=== PATIENT | female | born 1995 | race Two or more races ===

== ENCOUNTER 2022-06-19 12:32 | Outpatient (REF) | payer OTHER, SELFPAY ==
[2022-06-19 14:19] LABS: SARS PCR* Negative SARS-CoV-2 (Negative)
== END 2022-06-19 12:33 | disposition home or self-care (01) ==
LOC: NPINS 12:32
PROVIDERS: PCP Internal Medicine; Visit Provider Internal Medicine
DX: Z20.822 Contact with and (suspected) exposure to COVID-19 (principal)
CPT/HCPCS: 87635

== ENCOUNTER 2022-06-20 20:51 | Outpatient (CLI) | payer OTHER, SELFPAY | END 2022-06-20 20:52 | disposition home or self-care (01) | PROVIDERS: PCP Internal Medicine; Visit Provider Internal Medicine | DX: G47.33 Obstructive sleep apnea (adult) (pediatric) (principal); G47.10 Hypersomnia, unspecified | CPT/HCPCS: 95810 ==

== ENCOUNTER 2022-12-21 14:46 | Outpatient (CLI) | payer OTHER, SELFPAY ==
[2022-12-21 17:20] LABS: HCG Qualitative Serum* Negative (Negative)
[2022-12-24 03:52] LABS: Follicle Stimulating Hormone 9.1 IU/L
[2022-12-24 11:51] LABS: Prolactin 11.5 ng/mL (2.8-29.2)
[2022-12-28 14:47] LABS: Sex Hormone Binding Globulin 36 nmol/L (25-122); Testosterone, Free LC-MS/MS 4.1 pg/mL (0.8-7.4); Testosterone, LC-MS/MS 26 ng/dL (9-55)
== END 2022-12-21 14:47 | disposition home or self-care (01) ==
PROVIDERS: PCP Internal Medicine; Visit Provider Physician Assistant
DX: N91.2 Amenorrhea, unspecified (principal)
CPT/HCPCS: 83001; 84146; 84270; 84402; 84403; 84443; 84703